=== PATIENT | male | born 1995 | race Hispanic/Latino ===

== ENCOUNTER 2019-10-04 12:06 | Emergency (ER) | payer OTHER ==
[2019-10-04] MEDS ORDERED: KETOROLAC 60MG 2ML VIAL ONE (13:40)
[2019-10-04] MEDS ORDERED: methylPREDNISolone 125MG 2ML VIAL ONE (13:40)
[2019-10-04] MEDS ORDERED: LIDOCAINE 5% (LIDODERM) PATCH ONE (13:40)
[2019-10-04] MEDS ORDERED: LIDOCAINE 5% (LIDODERM) PATCH As Ordered ONE (13:42)
[2019-10-04] MEDS ORDERED: methylPREDNISolone 125MG 2ML VIAL As Ordered ONE (13:43)
[2019-10-04] MEDS ORDERED: KETOROLAC 60MG 2ML VIAL As Ordered ONE (13:43)
== END 2019-10-04 14:30 | disposition home or self-care (01) ==
LOC: M ED 12:06
DX: M54.5 Low back pain (principal); X50.0XXA Overexertion from strenuous movement or load, initial encounter; Y92.9 Unspecified place or not applicable; Y93.89 Activity, other specified; Y99.0 Civilian activity done for income or pay; F17.200 Nicotine dependence, unspecified, uncomplicated
CPT/HCPCS: 96372; 99283; J1885; J2930

== ENCOUNTER 2020-03-14 08:09 | Emergency (ER) | payer OTHER ==
[~2020-03-14] VITALS: Ht 175.3 cm; Wt 87.9 kg
[2020-03-14 08:10] VITALS: BP 130/77
--- NOTE | 2020-03-14 09:35 | REP ---
INDICATION: chest tenderness COMPARISON: None. TECHNIQUE: Portable AP view of the chest FINDINGS: The mediastinum and cardiac silhouette are within normal limits for portable technique. The lung petit are clear without acute consolidation, effusion, or pneumothorax. Skeletal structures are intact. IMPRESSION: No acute cardiopulmonary process appreciated. <Electronically signed by Sanjeev Oliveros > 03/14/20 0914
== END 2020-03-14 10:04 | disposition home or self-care (01) ==
LOC: M ED 08:09
DX: Z11.52 Encounter for screening for COVID-19 (principal); R07.89 Other chest pain; J45.909 Unspecified asthma, uncomplicated; F17.200 Nicotine dependence, unspecified, uncomplicated; F17.220 Nicotine dependence, chewing tobacco, uncomplicated
CPT/HCPCS: 71045; 99283; U0003